=== PATIENT | male | born 1955 | race Two or more races ===

== ENCOUNTER 2017-06-29 20:42 | Emergency (ER) | payer SELFPAY ==
[~2017-06-29] VITALS: Ht 167.6 cm; Wt 122.5 kg
[2017-06-29] MEDS ORDERED: SODIUM CHLORIDE 0.9% 1,000 ML IVB ONE (20:48)
[2017-06-29 20:50] VITALS: BP 125/73
[2017-06-29 21:45] LABS: Basophils # (auto) 0.1 uL; Basophils % (auto) 1.1 % (0.0-2.0); Eosinophils # (auto) 0.2 uL; Eosinophils % (auto) 2.9 % (0.0-7.0); Hematocrit 38.2 % (41.0-53.0); Hemoglobin 12.8 g/dL (13.5-17.5); Lymphocytes # (auto) 3.2 uL; Mean Corpuscular Hemoglobin 31.4 pg (28.0-32.0); Mean Corpuscular Hgb Conc. 33.6 g/dL (32.0-36.0); Mean Corpuscular Volume 93.4 fL (80.0-100.0); Mean Platelet Volume 11.3 fL (6.9-10.8); Monocytes # (auto) 0.4 uL; Monocytes % (auto) 4.6 % (0.0-12.0); Neutrophils # (auto) 4.1 uL; Neutrophils % (auto) 51.4 % (37.0-80.0); Platelet Count (auto) 127 10^3/uL (140-450); Red Cell Distribution Width 13.3 % (11.8-14.3); White Blood Cell 7.9 10^3/uL (4.4-10.8)
[2017-06-29 21:59] LABS: Albumin 3.8 g/dL (3.4-5.0); Alkaline Phosphatase 101 U/L (45-117); Anion Gap 15 (5-15); Aspartate Aminotransferase 38 U/L (15-37); BUN/Creatinine Ratio 8.9; Bilirubin, Total 0.2 mg/dL (0.2-1.0); Blood Urea Nitrogen 8 mg/dL (7-18); Calcium 7.2 mg/dL (8.5-10.1); Carbon Dioxide 17 mmol/L (21-32); Chloride 106 mmol/L (98-107); GFR African American 111 mL/min; GFR Non-African American 91 mL/min; Glucose 121 mg/dL (74-106); Magnesium 2.6 mg/dL (1.6-2.6); Potassium 3.4 mmol/L (3.5-5.1); Sodium 138 mmol/L (136-145); Total Protein 7.4 g/dL (6.4-8.2)
== END 2017-06-30 00:25 | disposition home or self-care (01) ==
LOC: EDBD 20:42 → ER 20:46
DX: T17.408A Unspecified foreign body in trachea causing other injury, initial encounter (principal); F10.120 Alcohol abuse with intoxication, uncomplicated; R06.03 Acute respiratory distress; X58.XXXA Exposure to other specified factors, initial encounter; Y93.89 Activity, other specified; Y99.8 Other external cause status; Y92.89 Other specified places as the place of occurrence of the external cause
CPT/HCPCS: 36415; 70450; 71010; 80053; 80320; 83735; 84484; 85025; 96360; 96361; 99291; J7030

== ENCOUNTER 2024-01-26 21:35 | Emergency (ER) | payer MEDICARE, MEDICAID ==
[~2024-01-26] VITALS: Ht 162.6 cm; Wt 109.2 kg
[2024-01-26 21:45] VITALS: BP 171/92; PULSE 65; RESP 16; TEMP 97.8; O2SAT 99
[2024-01-26] MEDS ORDERED: CLIN1CAP70 PO (22:20)
[2024-01-26] MEDS ORDERED: MUPI2OIN2 EX (22:20)
[2024-01-26] MEDS: HYDROcodone-ACET 5/325MG TAB PO ONE (23:00)
[2024-01-26] MEDS: cefTRIAXone SOD 1,000 MG VL IM ONE (23:00)
== END 2024-01-26 23:05 | disposition home or self-care (01) ==
LOC: ER 21:35
DX: L03.116 Cellulitis of left lower limb (principal); B99.8 Other infectious disease; I10 Essential (primary) hypertension
CPT/HCPCS: 96372; 99283; J0696